=== PATIENT | female | born 1970 | race African-American/Black ===

== ENCOUNTER 2024-03-23 11:20 | Outpatient (CLI) | payer OTHER | END 2024-03-23 11:21 | disposition home or self-care (01) | LOC: NAV RAD 11:20 | PROVIDERS: ATTEND Family Medicine | DX: M25.511 Pain in right shoulder (principal); M17.11 Unilateral primary osteoarthritis, right knee; M51.370 Other intervertebral disc degeneration, lumbosacral region with discogenic back pain only; R93.7 Abnormal findings on diagnostic imaging of other parts of musculoskeletal system; M47.816 Spondylosis without myelopathy or radiculopathy, lumbar region | CPT/HCPCS: 72100 ==